=== PATIENT | female | born 1990 | race Caucasian/White ===

== ENCOUNTER 2022-09-05 19:39 | Emergency (ER) | payer OTHER ==
[2022-09-05] MEDS ORDERED: Diphtheria,Pertussis(Acell),Tetanus Vaccine 0.5 ML Syringe IM ONE (19:44)
[2022-09-05] MEDS ORDERED: Bacitracin Oint 1 GM U/D Packet TOP ONE (19:44)
[2022-09-05] MEDS ORDERED: Lidocaine 1% 5 ML VIAL INJECT ONE (19:44)
== END 2022-09-05 20:35 | disposition home or self-care (01) ==
LOC: DL.ED 19:39
DX: S61.215A Laceration without foreign body of left ring finger without damage to nail, initial encounter (principal); Z23 Encounter for immunization; W26.8XXA Contact with other sharp object(s), not elsewhere classified, initial encounter; Y92.000 Kitchen of unspecified non-institutional (private) residence as the place of occurrence of the external cause
CPT/HCPCS: 12001; 90471; 90715; 99282; 99283-25; A9270-GY; J3490